=== PATIENT | male | born 1985 | race African-American/Black ===

== ENCOUNTER 2018-08-28 11:26 | Emergency (ER) | payer SELFPAY ==
[~2018-08-28] VITALS: Ht 180.3 cm; Wt 79.4 kg
--- NOTE | 2018-08-28 11:26 | NUR ---
PT BIBRA FROM THE STREETS, IN FRONT OF [facility]ING BIZARRE, REFUSING TO TALK; PT ON MONITOR, NAD NOTED, VSS, ER PROVIDER AT BEDSIDE FOR EVAL
[2018-08-28 12:00] LABS: EOSINOPHILS % (AUTO) 2.3 % (0.0-6.0); HEMATOCRIT 45 % (39-51); LYMPHOCYTES # (AUTO) 1.5 /CMM (0.8-4.8); LYMPHOCYTES % (AUTO) 33.7 % (20.0-44.0); MEAN CORPUSCULAR HGB CONC 34 g/dl (31.0-36.0); MEAN CORPUSCULAR VOLUME 89 fL (80-96); MONOCYTES # (AUTO) 0.6 /CMM (0.1-1.30); MONOCYTES % (AUTO) 13.1 % (2.0-12.0); NEUTROPHILS # (AUTO) 2.2 /CMM (1.8-8.9); NEUTROPHILS % (AUTO) 49.9 % (43.0-81.0); PLATELET COUNT (AUTO) 374 /CMM (150-450); RED BLOOD CELL COUNT(AUTO) 4.99 MIL/uL (4.5-6.0); WHITE BLOOD COUNT (AUTO) 4.4 K/uL (4.3-11.0)
--- NOTE | 2018-08-28 12:00 | NUR ---
COLLECTED URINE, SENT SPECIMEN TO LAB
[2018-08-28 12:06] LABS: APPEARANCE,URINE Clear (CLEAR); BILIRUBIN,URINE Negative (NEGATIVE); BLOOD, URINE Negative Ery/uL (NEGATIVE); COLOR,URINE Yellow (YELLOW); KETONES,URINE Trace (NEGATIVE); LEUKOCYTE ESTERASE ,URINE Negative (NEGATIVE); NITRITE, URINE Negative (NEGATIVE); PROTEIN,URINE Negative (NEGATIVE); UGLUCOSE Negative (NEGATIVE); UROBILINOGEN,URINE 0.2 EU/dL (0.2)
[2018-08-28 12:08] LABS: CALCIUM, SERUM 9.8 mg/dL (8.5-10.1); CARBON DIOXIDE 29 mmol/L (21-32); CHLORIDE 101 mmol/L (98-107); CREATININE 0.8 mg/dL (0.6-1.3); GLUCOSE 78 mg/dL (74-106); POTASSIUM 3.8 mmol/L (3.5-5.1); SODIUM SERUM 137 mmol/L (136-145); UREA NITROGEN, BLOOD 9 mg/dL (7-18)
[2018-08-28 12:15] LABS: ACETAMINOPHEN < 10 ug/ml (10-30); ALANINE AMINOTRANSFERASE 17 U/L (12-78); ALCOHOL, BLOOD < 3 mg/dL (0-0); ALKALINE PHOSPHATASE 93 U/L (46-116); ASPARTATE AMINOTRANSFERASE 19 U/L (15-37); BILIRUBIN,DIRECT 0.2 mg/dL (0.0-0.2); SALICYLATE < 2.8 mg/dL (2.8-20.0); TOTAL PROTEIN, SERUM 8.5 g/dL (6.4-8.2)
--- NOTE | 2018-08-28 17:20 | NUR ---
PT MOVED TO BED 15, PT ON MONITOR. NAD NOTED.
[2018-08-28] MEDS ORDERED: OLANZAPINE 5 MG/TAB.RAPDIS PO ONE (17:30)
[2018-08-28] MEDS ORDERED: LORAZEPAM 1 MG TABLET PO ONE (17:30)
[2018-08-28] MEDS ORDERED: LORAZEPAM 1 MG TABLET ONE (17:40)
[2018-08-28] MEDS ORDERED: OLANZAPINE 5 MG/TAB.RAPDIS ONE (17:42)
--- NOTE | 2018-08-28 19:33 | NUR ---
OFFERED PT DINNER; PT REFUSED. GIVEN DRINKS AT BEDSIDE.
--- NOTE | 2018-08-28 21:30 | NUR ---
PT AMBULATED TO BATHROOM WITH STEADY GAIT, NAD NOTED, PT NODS TO QUESTION, REFUSES TO TALK. ASSISTED BACK TO BED. PT ON MONITOR
--- NOTE | 2018-08-29 01:39 | NUR ---
BGL RECHECK=63; PT OFFERED JUICE, SANDWICH, CRACKERS. PT REFUSES ALL FOOD AND DRINKS. DR AC NOTIFIED.
--- NOTE | 2018-08-29 07:28 | NUR ---
PT NON VERBAL WHEN ASKED QUESTIONS PT REPOSITIONED IN BED GIVEN MEAL TRAY VITAL SIGNS TAKEN WHEEL CHAIR WITH BELONGS ON SEAT AT BEDSIDE. PLAN OF CARE TO SPEAK TO [employer] AND ARRANGE FOR DISCHARGE.
[2018-08-29] MEDS ORDERED: AMMONIA NASAL INHALATION 1 EA PACK NAS ONE (08:18)
--- NOTE | 2018-08-29 08:21 | NUR ---
SW received a call from ED requesting Social service consult for homelessness and resources. Pt. is a 33 year old male who was brought in by ambulance for altered mental status. The patient was found laying down in front of a pharmacy on the ground. The patient has discharge paperwork with him from [facility] from 2 days ago with diagnoses of homelessness and malingering. Pt. is a methamphetamine user. The patient is awake but not speaking. According to pt's GAEL Post, pt. is ambulatory and has been in the ER for the past 20 hours. SW met with pt. bedside. Pt's belongings are bedside. SW attempted to speak with the pt., however pt. is not cooperating and not responding to SW. Pt. had his eyes closed the entire time. Pt. was not cooperative with the doctor and staff either. Pt. has been known for malingering. SW unable to assess or provide homeless resources since pt. is not cooperating. Pt. refused to sign Homeless Patient Waiver Form. BERNARDINO and GAEL Post signed as witnesses stating pt. refused to speak with SW and take any resources. Security was called to escort pt. out of [facility] since pt. has been medically cleared. SW is available, if needed.
--- NOTE | 2018-08-29 08:33 | NUR ---
pt evaluated by medical collections refused resources discharged to community clothed and all belongs with pt taken.
[2018-08-29 08:34] VITALS: BP 108/69
--- NOTE | 2018-08-29 08:40 | NUR ---
piv removed from lac with tip in tact all hspital iD bands removed pt noted to stand and sit in wheel aditya.
== END 2018-08-29 08:41 | disposition home or self-care (01) ==
LOC: ER 11:27
DX: R41.82 Altered mental status, unspecified (principal); Z59.0 Homelessness
CPT/HCPCS: 36415; 70450; 80048; 80076; 80305; 80307; 80329; 81001; 82962; 85025; 85730; 99284; A4606; G0480; 81000-TC